=== PATIENT | female | born 1955 | race Caucasian/White ===

== ENCOUNTER 2019-12-03 15:21 | Emergency (ER) | payer OTHER, SELFPAY ==
[2019-12-03] VITALS (9 sets, daily range): BP systolic 154–194; BP diastolic 76–93; PULSE 61–71; RESP 14–20; TEMP 36.4; O2SAT 94–98; BMI 24.3
[2019-12-03 16:07] LABS: Add Manual Diff / Slide Review NO; Basophils Absolute Auto 100 /uL (0-100); Basophils Percent Auto 0.7 % (0-2); Eosinophils Absolute Auto 200 /uL (0-450); Eosinophils Percent Auto 2.4 % (2-4); Hematocrit 37.4 % (36-46); Hemoglobin 12.9 g/dL (12.0-16.0); Lymphocytes Absolute Auto 1700 /uL (1100-4500); Mean Corpuscular HGB Conc 34.5 % (30-36); Mean Corpuscular Hemoglobin 30.1 PG (26-34); Mean Corpuscular Volume 87.3 fL (80-100); Monocytes Absolute Auto 500 /uL (0-900); Monocytes Percent Auto 7.1 % (3-14); Neutrophils Absolute Auto 4300 /uL (1500-7000); Neutrophils Percent Auto 63.8 % (50-75); Platelet Count 233 X10^3/uL (150-400); Red Blood Cell Count 4.28 X10^6/uL (4.0-5.2); Red Cell Distribution Width 13.2 % (11.6-14.8); White Blood Cell Count 6.7 X10^3/uL (4.5-11.0)
--- NOTE | 2019-12-03 16:11 | ED_ITS ---
HPI - GI Bleed <ESCOBAR JinP - Last Filed: 12/03/19 23:46> General Chief complaint: GI Bleed Stated complaint: sent by MD for stomach issues Time Seen by Provider: 12/03/19 15:51 Source: patient Mode of arrival: Ambulatory Limitations: no limitations History of Present Illness HPI Narrative: This is a 64-year-old female, nonsmoker, who has history of cardiac stent and takes baby aspirin daily, hypertension, hiatal hernia presents to ED with family with chief complain of bright red rectal bleeding with diarrhea for last 4 days with epigastric discomfort. Patient denies chest pain, dyspnea, fever, chills, nausea or vomiting. Patient reports headache and irritability. Patient reports in the past she had GI bleed with bright red or dark stool occasionally when she eats acid ache food. Patient denies recent travel outside [place] camping, eating unusual food, working with farm animals, recent antibiotic medication use. Patient has been taking vegetable broth last 2 days without improvement in her symptoms. Patient denies other family member with similar symptoms. Patient's PCP is DR. Escobar and was recommended go to ED for evaluation and tests. Related Data Allergies Allergy/AdvReac Type Severity Reaction Status Date / Time No Known Drug Allergies Allergy Verified 12/03/19 15:36 Review of Systems <Preston RochaPalREYES Mcgill - Last Filed: 12/03/19 23:46> Review of Systems Narrative: General: Denies fever, chills, fatigue, malaise, sweats. HEENT: Denies sinus pain, ear pain, sore throat, difficulty swallowing, dizziness. Respiratory: Denies dyspnea, cough, wheezing, hemoptysis, sputum. Cardiovascular: Denies chest pain, palpitations, orthopnea, edema. Gastrointestinal: See HPI : Denies dysuria, frequency, incontinence, hematuria, urinary retention. Musculoskeletal: Denies weakness, joint pain or bony pain. Skin: Denies rash, skin lesions, or other. Neurologic: Denies weakness, (+) headache, numbness, change in speech, confusion, seizures, incoordination. Psychiatric: No concerning psychosocial issues. 12-point review of systems is negative except for those stated above. Patient History <REYES Jin Last Filed: 12/03/19 23:46> Medical History Hiatal hernia (Acute) Hyperlipidemia (Acute) Hypertension (Acute) Hypothyroidism (Acute) Surgical History H/O heart artery stent (Acute) Social History Smoking Status: Never smoker Smoking Status: Never smoker alcohol intake frequency: 0-2 drinks per day Substance Use Type: marijuana Exam <REYES Jin - Last Filed: 12/03/19 23:46> Narrative Exam Narrative: GEN: Alert, oriented x 3, well appearing and nourished, and in no acute distress. Head: Normal cephalic, atraumatic. No scalp or temporal tenderness, palpable mass or rash. EYES: Pupils are equal, round, and reactive to light and accommodation. Extraoc ular muscles are intact bilaterally. There is no subconjunctival hemorrhage, exudate and sclera non-icteric. ENT: Hearing grossly intact. Nose without bleeding, purulent discharge or deviation. Mucous membrane moist, no mucosal lesion. Throat without erythema, tonsillar hypertrophy or exudate. Uvula in midline, airway patent. Neck: Trachea in midline. No JVD, non-tender without lymphadenopathy. No masses or thyroid megaly. Supple, non-tender and no meningeal signs. CARDIAC: Normal regular rate and rhythm without murmurs, gallops, or rubs. No chest wall tenderness. No peripheral edema, cyanosis or pallor. Capillary refill is less than 2 seconds. RESPIRATORY: Lungs are clear to auscultate bilaterally. No cough, wheezes, rales, or rhonchi. No stridor, respiratory distress, increase work of breathing, or accessary muscle used. ABD: Abdomen soft, nontender and non-distended. No guarding or rebound tenderness to palpate. Bowel sounds are normal in all 4 quadrants. Small external hemorrhoids without bleeding. Rectal exam appreciated light pink mucous like stool. Hemoccult positive. There is no palpable masses or organomegaly. EXT: Full painless ROM of all extremities with no loss of sensation, strength, effusion or edema. SKIN: Warm, dry, normal color for patient. No erythema, lesions or rash over visible areas. BACK: Nontender without deformity or crepitance. No flank tenderness. NEUROLOGICAL: Alert and oriented to place, time and person. Sensation and motor function intact bilaterally. No facial droops, dysphasia. PSYCHIATRIC: Good judgement and reason, without hallucinations, abnormal affect or abnormal behaviors during the examination. Patient is not suicidal. Initial Vital Signs Initial Vital Signs: Vital Signs Temperature 97.6 F 12/03/19 15:33 Pulse Rate 63 12/03/19 15:33 Respiratory Rate 16 12/03/19 15:33 Blood Pressure 183/87 H 12/03/19 15:33 Pulse Oximetry 98 12/03/19 15:33 <Prudencio Freeman MD - Last Filed: 12/09/19 03:55> Initial Vital Signs Initial Vital Signs: Vital Signs Temperature 97.6 F 12/03/19 15:33 Pulse Rate 63 12/03/19 15:33 Respiratory Rate 16 12/03/19 15:33 Blood Pressure 183/87 H 12/03/19 15:33 Pulse Oximetry 98 12/03/19 15:33 Scores <REYES Jin - Last Filed: 12/03/19 23:46> GCS Araceli coma scale eye opening: Spontaneous Araceli coma scale verbal response: Orientated Araceli coma scale motor response: Obey commands [place] coma scale total score: 15 Course <REYES Jin - Last Filed: 12/03/19 23:46> Orders Ordered: Discontinued Medications Sodium Chloride (Normal Saline 0.9%) 1,000 mls @ 150 mls/hr IV CONT ANTONIA Last Admin: 12/03/19 18:12 Dose: Not Given Documented by: ANTON Pantoprazole Sodium (Protonix) 40 mg IV NOW ONE Stop: 12/03/19 16:11 Last Admin: 12/03/19 16:35 Dose: 40 mg Documented by: ANTON Vital Signs Vital signs: Vital Signs - 8 hr 12/03/19 15:33 12/03/19 15:46 12/03/19 15:48 Temperature 97.6 F Pulse Rate 63 71 64 Respiratory Rate 16 20 Blood Pressure 183/87 H 194/93 H Pulse Oximetry 98 97 12/03/19 16:00 12/03/19 16:01 12/03/19 17:17 Temperature Pulse Rate 61 62 64 Respiratory Rate 14 15 Blood Pressure 154/80 H Pulse Oximetry 96 97 94 12/03/19 17:30 12/03/19 17:48 12/03/19 18:00 Temperature Pulse Rate 61 61 63 Respiratory Rate 17 Blood Pressure 168/79 H 155/76 H Pulse Oximetry 95 98 95 <Prudencio Freeman MD - Last Filed: 12/09/19 03:55> Orders Ordered: Discontinued Medications Sodium Chloride (Normal Saline 0.9%) 1,000 mls @ 150 mls/hr IV CONT ANTONIA Last Admin: 12/03/19 18:12 Dose: Not Given Documented by: ANTON Pantoprazole Sodium (Protonix) 40 mg IV NOW ONE Stop: 12/03/19 16:11 Last Admin: 12/03/19 16:35 Dose: 40 mg Documented by: ANTON Vital Signs Vital signs: Vital Signs - 8 hr 12/03/19 15:33 12/03/19 15:46 12/03/19 15:48 Temperature 97.6 F Pulse Rate 63 71 64 Respiratory Rate 16 20 Blood Pressure 183/87 H 194/93 H Pulse Oximetry 98 97 12/03/19 16:00 12/03/19 16:01 12/03/19 17:17 Temperature Pulse Rate 61 62 64 Respiratory Rate 14 15 Blood Pressure 154/80 H Pulse Oximetry 96 97 94 12/03/19 17:30 12/03/19 17:48 12/03/19 18:00 Temperature Pulse Rate 61 61 63 Respiratory Rate 17 Blood Pressure 168/79 H 155/76 H Pulse Oximetry 95 98 95 MDM - GI Bleed <REYES Jin - Last Filed: 12/03/19 23:46> Differential Diagnosis Differential diagnosis: Likely hemorrhoids, infectious diarrhea, Upper gastrointestinal hemorrhage, Lower gastrointestinal hemorrhage, anal fissure and other (Colitis) Medical Records Attestation: I reviewed the patient's medical records. Lab Data Attestation: I reviewed the patient's lab results. Result diagrams: 12/03/19 15:50 12/03/19 15:50 Labs: Lab Results 12/03/19 12/03/19 12/03/19 Range/Units 15:50 15:50 15:50 WBC 6.7 (4.5-11.0) X10^3/uL RBC 4.28 (4.0-5.2) X10^6/uL Hgb 12.9 (12.0-16.0) g/dL Hct 37.4 (36-46) % MCV 87.3 (80-100) fL MCH 30.1 (26-34) PG MCHC 34.5 (30-36) % RDW 13.2 (11.6-14.8) % Plt Count 233 (150-400) X10^3/uL Neut % (Auto) 63.8 (50-75) % Lymph % (Auto) 26.0 (25-40) % [place] % (Auto) 7.1 (3-14) % Eos % (Auto) 2.4 (2-4) % Baso % (Auto) 0.7 (0-2) % Neut # (Auto) 4300 (9954-3890) /uL Lymph # (Auto) 1700 (9651-2776) /uL [place] # (Auto) 500 (0-900) /uL Eos # (Auto) 200 (0-450) /uL Baso # (Auto) 100 (0-100) /uL PT 11.7 (10.1-12.7) SECONDS INR 1.0 (0.9-1.3) APTT 30 (26.4-36.2) SECONDS Sodium 136 L (137-145) mmol/L Potassium 3.6 (3.4-5.1) mmol/L Chloride 101 (98-107) mmol/L Carbon Dioxide 28 (22-32) mmol/L BUN 12 (7-17) mg/dL Creatinine 0.68 (0.52-1.04) mg/dL Estimated GFR > 60.0 (>60) mL/min BUN/Creatinine Ratio 17.6 (6-22) Glucose 108 (80-110) mg/dL Calcium 9.5 (8.4-10.2) mg/dL Total Bilirubin 0.9 (0.2-1.3) mg/dL AST 47 H (14-36) IU/L ALT 43 H (<35) IU/L Alkaline Phosphatase 78 (38-126) U/L Total Protein 7.8 (6.3-8.2) g/dL Albumin 4.7 (3.5-5.0) g/dL Globulin 3.1 (1.7-4.1) g/dL Albumin/Globulin Ratio 1.5 (1.0-2.8) Lipase (23-300) U/L Urine RBC (0-5/HPF) Urine WBC (0-5/HPF) Urine Bacteria (None) Ur Culture Indicated? Micro UA Comment Blood Type Antibody Screen 12/03/19 12/03/19 12/03/19 Range/Units 15:50 15:50 16:38 WBC (4.5-11.0) X10^3/uL RBC (4.0-5.2) X10^6/uL Hgb (12.0-16.0) g/dL Hct (36-46) % MCV (80-100) fL MCH (26-34) PG MCHC (30-36) % RDW (11.6-14.8) % Plt Count (150-400) X10^3/uL Neut % (Auto) (50-75) % Lymph % (Auto) (25-40) % [place] % (Auto) (3-14) % Eos % (Auto) (2-4) % Baso % (Auto) (0-2) % Neut # (Auto) (7546-3879) /uL Lymph # (Auto) (1038-3883) /uL [place] # (Auto) (0-900) /uL Eos # (Auto) (0-450) /uL Baso # (Auto) (0-100) /uL PT (10.1-12.7) SECONDS INR (0.9-1.3) APTT (26.4-36.2) SECONDS Sodium (137-145) mmol/L Potassium (3.4-5.1) mmol/L Chloride (98-107) mmol/L Carbon Dioxide (22-32) mmol/L BUN (7-17) mg/dL Creatinine (0.52-1.04) mg/dL Estimated GFR (>60) mL/min BUN/Creatinine Ratio (6-22) Glucose (80-110) mg/dL Calcium (8.4-10.2) mg/dL Total Bilirubin (0.2-1.3) mg/dL AST (14-36) IU/L ALT (<35) IU/L Alkaline Phosphatase (38-126) U/L Total Protein (6.3-8.2) g/dL Albumin (3.5-5.0) g/dL Globulin (1.7-4.1) g/dL Albumin/Globulin Ratio (1.0-2.8) Lipase 160 (23-300) U/L Urine RBC None seen (0-5/HPF) Urine WBC None seen (0-5/HPF) Urine Bacteria None seen (None) Ur Culture Indicated? Cult not indicated Micro UA Comment Microscopic normal Blood Type A Positive Antibody Screen Negative Urine Dip Bedside Urine Glucose 100 mg/dl Bedside Urine Bilirubin - Negative Bedside Urine Ketone - Negative Urine Specific [place] 1.005 Bedside Urine Occult Blood - Negative Bedside Urine pH 6.5 Bedside Urine Protein - Negative Bedside Urine Urobilinogen - Negative Bedside Urine Nitrite - Negative Bedside Urine Leukocytes ++ [address] scan - abdomen/pelvis: Radiologist's Impression: [address] [address] [address] Scan Report Signed Patient: Kendra Keys RMR#: [id number] : [id number] Age/Sex: 64 / FDate of Service: 12/03/19 Loc: ED Accession Number: [id number] Procedure: CT abdomen pelvis w con Ordering Provider: Preston Sylvester PROCEDURE: CT ABDOMEN PELVIS W CON INDICATIONS: rectal bleed and diarrhea x 4days, mid abd pain TECHNIQUE: After the administration of intravenous contrast, 5 mm thick sections acquired from the diaphragm to the symphysis. 5 mm coronal and sagittal reformats were acquired. For radiation dose reduction, the following was used: automated exposure control, adjustment of mA and/or kV according to patient size. COMPARISON: None. FINDINGS: Image quality: Excellent. ABDOMEN: Lung bases: Lung bases are clear. Heart size is normal. Small pericardial e ffusion. Solid organs: Liver is normal in size and enhancement. Gallbladder is normal. Biliary system is non dilated. Pancreas enhances normally. Spleen is normal in size and enhancement. No adrenal nodules. Kidneys demonstrate normal size and enhancement. Trace renal pelviectasis. Peritoneum and bowel: The large amount of stool in proximal colon. There is mild thickening of hepatic flexure and proximal transverse colon. Bowel loops demonstrate normal wall thickness and caliber. No free fluid or air. Nodes and vessels: No retroperitoneal or mesenteric adenopathy by size cr iteria. Aorta and inferior vena cava are normal in size. [id number] atherosclerosis. Miscellaneous: No ventral hernias. PELVIS: Genitourinary: Bladder wall thickness is normal. There is a 3.1 x 4.9 cm cyst in the left adnexa, likely an ovarian cyst. Right ovary is not well seen. Uterus is small, consistent with age related change. Miscellaneous: No inguinal hernias or adenopathy. Bones: No suspicious bony lesions. No vertebral body compression fractures. Mild scoliosis and degenerative changes in lumbar spine. IMPRESSION: 1. Mild thickening of hepatic flexure and proximal transverse colon suggesting colitis. 2. Rectum may be thickened. In absence of oral contrast in the area, the finding could be caused by artifact. 3. There is a large amount of stool in proximal colon. 4. Small pericardial effusion. 5. Mild symmetrical renal pelviectasis bilaterally. 6. A 3.1 x 4.9 cm cyst in left adnexa. Recommend nonurgent pelvic ultrasound for follow-up evaluation. Dictated by: Kerry James M.D. on 12/03/2019 at 16:35 Approved by: Kerry James M.D. on 12/03/2019 at 16:44 ECG Data Attestation: I personally reviewed and interpreted this ECG as follows: Prior ECG tracings: not available for review Interpretation: Normal sinus rhythm rate at 66. Normal [place]. [place] interval 164, QRS duration 82, QT/QTC 436/457. No acute ST changes MDM Narrative Medical decision making narrative: This is a 64-year-old female who presents to ED with 4 day duration of diarrhea and bright red rectal bleeding. Patient reports she has history of hemorrhoids and associated symptoms as mid abdominal discomfort. She denies constitutional symptoms or recent antibiotic medication use, recent travel, working with farm animals. Last colonoscopy about 2 years ago due to history of hiatal hernia according to patient without acute findings. Physical exam is unremarkable. Abdomen was soft to palpate without rebound tenderness and intact bowel sounds in 4 quadrants. Rectal exam appreciated light pink mucous like stool appreciated with positive Hemoccult with non- bleeding hemorrhoids. Patient is afebrile with hypertensive upon arrival which improved to 155/76 the tachycardia or tachypnea. EKG was normal sinus rhythm without acute ST changes. No leukocytosis. Stable H&H of 12.9/37.4. Normal coag test. Unremarkable chemistry test except mildly elevated AST of 47 and ALT of 43. Normal lipase. POC UA test showed low urine leukoesterase without nitrite. Microscopic urine test shows no WBC or bacteria and not likely having an urinary infection. CT of abdomen/pelvis indicates with thickening of hepatic flexure and proximal transverse colon suggesting colitis. There is large amount of stool and proximal colon. No free fluid or air appreciated. Incidental findings of small pericardial effusion with mild symmetrical renal pelviectasis bilaterally and a left adnexa measuring in 3.1 x 4.9 cm and recommended non-urgent pelvic ultrasound for follow-up. 40 mg IV pantoprazole and gentle IV hydration. Given patient is afebrile without leukocytosis will hold antibiotic medication treatment for colitis. Patient advised to continue with clear liquid diet or bland diet for next couple of days. Advised to take [id number] Tylenol for discomfort. Advised to follow up with primary care physician for re- evaluation and consider for colonoscopy sooner than 5-10 years if patient's symptoms persist. Return precautions were discussed with patient and patient verbalized understanding and agreement with the treatment plan. Consulted Dr. Freeman for treatment plan with physical findings, labs and imaging test results. <Prudencio Freeman MD - Last Filed: 12/09/19 03:55> Lab Data Labs: Lab Results 12/03/19 12/03/19 12/03/19 Range/Units 15:50 15:50 15:50 WBC 6.7 (4.5-11.0) X10^3/uL RBC 4.28 (4.0-5.2) X10^6/uL Hgb 12.9 (12.0-16.0) g/dL Hct 37.4 (36-46) % MCV 87.3 (80-100) fL MCH 30.1 (26-34) PG MCHC 34.5 (30-36) % RDW 13.2 (11.6-14.8) % Plt Count 233 (150-400) X10^3/uL Neut % (Auto) 63.8 (50-75) % Lymph % (Auto) 26.0 (25-40) % [place] % (Auto) 7.1 (3-14) % Eos % (Auto) 2.4 (2-4) % Baso % (Auto) 0.7 (0-2) % Neut # (Auto) 4300 (5361-1346) /uL Lymph # (Auto) 1700 (5761-2010) /uL [place] # (Auto) 500 (0-900) /uL Eos # (Auto) 200 (0-450) /uL Baso # (Auto) 100 (0-100) /uL PT 11.7 (10.1-12.7) SECONDS INR 1.0 (0.9-1.3) APTT 30 (26.4-36.2) SECONDS Sodium 136 L (137-145) mmol/L Potassium 3.6 (3.4-5.1) mmol/L Chloride 101 (98-107) mmol/L Carbon Dioxide 28 (22-32) mmol/L BUN 12 (7-17) mg/dL Creatinine 0.68 (0.52-1.04) mg/dL Estimated GFR > 60.0 (>60) mL/min BUN/Creatinine Ratio 17.6 (6-22) Glucose 108 (80-110) mg/dL Calcium 9.5 (8.4-10.2) mg/dL Total Bilirubin 0.9 (0.2-1.3) mg/dL AST 47 H (14-36) IU/L ALT 43 H (<35) IU/L Alkaline Phosphatase 78 (38-126) U/L Total Protein 7.8 (6.3-8.2) g/dL Albumin 4.7 (3.5-5.0) g/dL Globulin 3.1 (1.7-4.1) g/dL Albumin/Globulin Ratio 1.5 (1.0-2.8) Lipase (23-300) U/L Urine RBC (0-5/HPF) Urine WBC (0-5/HPF) Urine Bacteria (None) Ur Culture Indicated? Micro UA Comment Blood Type Antibody Screen 12/03/19 12/03/19 12/03/19 Range/Units 15:50 15:50 16:38 WBC (4.5-11.0) X10^3/uL RBC (4.0-5.2) X10^6/uL Hgb (12.0-16.0) g/dL Hct (36-46) % MCV (80-100) fL MCH (26-34) PG MCHC (30-36) % RDW (11.6-14.8) % Plt Count (150-400) X10^3/uL Neut % (Auto) (50-75) % Lymph % (Auto) (25-40) % [place] % (Auto) (3-14) % Eos % (Auto) (2-4) % Baso % (Auto) (0-2) % Neut # (Auto) (6169-5114) /uL Lymph # (Auto) (4424-8993) /uL [place] # (Auto) (0-900) /uL Eos # (Auto) (0-450) /uL Baso # (Auto) (0-100) /uL PT (10.1-12.7) SECONDS INR (0.9-1.3) APTT (26.4-36.2) SECONDS Sodium (137-145) mmol/L Potassium (3.4-5.1) mmol/L Chloride (98-107) mmol/L Carbon Dioxide (22-32) mmol/L BUN (7-17) mg/dL Creatinine (0.52-1.04) mg/dL Estimated GFR (>60) mL/min BUN/Creatinine Ratio (6-22) Glucose (80-110) mg/dL Calcium (8.4-10.2) mg/dL Total Bilirubin (0.2-1.3) mg/dL AST (14-36) IU/L ALT (<35) IU/L Alkaline Phosphatase (38-126) U/L Total Protein (6.3-8.2) g/dL Albumin (3.5-5.0) g/dL Globulin (1.7-4.1) g/dL Albumin/Globulin Ratio (1.0-2.8) Lipase 160 (23-300) U/L Urine RBC None seen (0-5/HPF) Urine WBC None seen (0-5/HPF) Urine Bacteria None seen (None) Ur Culture Indicated? Cult not indicated Micro UA Comment Microscopic normal Blood Type A Positive Antibody Screen Negative Urine Dip Bedside Urine Glucose 100 mg/dl Bedside Urine Bilirubin - Negative Bedside Urine Ketone - Negative Urine Specific [place] 1.005 Bedside Urine Occult Blood - Negative Bedside Urine pH 6.5 Bedside Urine Protein - Negative Bedside Urine Urobilinogen - Negative Bedside Urine Nitrite - Negative Bedside Urine Leukocytes ++ 125 Esterase Discharge Plan Departure Patient Disposition: Home Clinical Impression: Colitis, Rectal bleed Discharge Date/Time: 12/03/19 18:20 Instructions: DI for Rectal Bleeding, DI for Colitis Activity Restrictions/Additional Instructions: You have been diagnosed with [colitis and rectal bleed. CBC count is stable for H/ H and no elevation in WBC/neutrophils. Very mildly elevated in AST and ALT (liver function test). Urine test does not indicate infection. Abd/Pelvis CT test suggesting colitis and large amount of stool in proximal colon. There is a cyst appreciated in left ovary which should be followed up by ultrasound in the near future. Incidental finding of small pericardial effusion.]. What to do: *Take your medications as directed. Please continue with clear liquid diet or bland diet next couple of days. *Follow up with your primary care provider in 2-3 days, call for an appointment. Let them know you were seen in the ED and that we asked you to be seen in follow up. You may repeat colonoscopy sooner than 5-10 years. *Return to ED if you have any new, worsening, or concerning symptoms, such as [fever, worsening pain, increasing rectal bleeding, chest pain, breathing difficulty, unable to tolerate fluids or any acute concerns]. Referrals: Anna Kim DO [Primary Care Provider] - <Prudencio Freeman MD - Last Filed: 12/09/19 03:55> Cosign ED Attending Cosrobertature Attestation: I was immediately available in the department for consultation. This documentation has been reviewed and I agree with assessment and plan. Supervised by Prudencio Freeman MD
[2019-12-03 16:13] LABS: Prothrombin Time 11.7 SECONDS (10.1-12.7)
[2019-12-03 16:16] LABS: PTT Partial Thromboplastin Tim 30 SECONDS (26.4-36.2)
[2019-12-03 16:17] LABS: Alanine Aminotransferase 43 IU/L (<35); Albumin 4.7 g/dL (3.5-5.0); Albumin Globulin Ratio 1.5 (1.0-2.8); Alkaline Phosphatase 78 U/L (38-126); Aspartate Aminotransferase 47 IU/L (14-36); BUN Creatinine Ratio 17.6 (6-22); Bilirubin Total 0.9 mg/dL (0.2-1.3); Blood Urea Nitrogen 12 mg/dL (7-17); Calcium 9.5 mg/dL (8.4-10.2); Carbon Dioxide 28 mmol/L (22-32); Chloride 101 mmol/L (98-107); Estimated Glomerular Filt Rate > 60.0 mL/min (>60); Globulin 3.1 g/dL (1.7-4.1); Glucose 108 mg/dL (80-110); HEMOLYSIS < 15 (0-50); Potassium 3.6 mmol/L (3.4-5.1); Sodium 136 mmol/L (137-145); Total Protein 7.8 g/dL (6.3-8.2)
[2019-12-03 16:19] LABS: Lipase 160 U/L (23-300)
[2019-12-03] MEDS: PANTOPRAZOLE 40 MG VIAL IV (16:35)
--- NOTE | 2019-12-03 16:52 | DI.CT.S_ITS ---
PROCEDURE: CT ABDOMEN PELVIS W CON INDICATIONS: rectal bleed and diarrhea x 4days, mid abd pain TECHNIQUE: After the administration of intravenous contrast, 5 mm thick sections acquired from the diaphragm to the symphysis. 5 mm coronal and sagittal reformats were acquired. For radiation dose reduction, the following was used: automated exposure control, adjustment of mA and/or kV according to patient size. COMPARISON: None. FINDINGS: Image quality: Excellent. ABDOMEN: Lung bases: Lung bases are clear. Heart size is normal. Small pericardial effusion. Solid organs: Liver is normal in size and enhancement. Gallbladder is normal. Biliary system is non dilated. Pancreas enhances normally. Spleen is normal in size and enhancement. No adrenal nodules. Kidneys demonstrate normal size and enhancement. Trace renal pelviectasis. Peritoneum and bowel: The large amount of stool in proximal colon. There is mild thickening of hepatic flexure and proximal transverse colon. Bowel loops demonstrate normal wall thickness and caliber. No free fluid or air. Nodes and vessels: No retroperitoneal or mesenteric adenopathy by size criteria. Aorta and inferior vena cava are normal in size. Tscbocsu-di-adjuee atherosclerosis. Miscellaneous: No ventral hernias. PELVIS: Genitourinary: Bladder wall thickness is normal. There is a 3.1 x 4.9 cm cyst in the left adnexa, likely an ovarian cyst. Right ovary is not well seen. Uterus is small, consistent with age related change. Miscellaneous: No inguinal hernias or adenopathy. Bones: No suspicious bony lesions. No vertebral body compression fractures. Mild scoliosis and degenerative changes in lumbar spine. IMPRESSION: 1. Mild thickening of hepatic flexure and proximal transverse colon suggesting colitis. 2. Rectum may be thickened. In absence of oral contrast in the area, the finding could be caused by artifact. 3. There is a large amount of stool in proximal colon. 4. Small pericardial effusion. 5. Mild symmetrical renal pelviectasis bilaterally. 6. A 3.1 x 4.9 cm cyst in left adnexa. Recommend nonurgent pelvic ultrasound for follow-up evaluation. Dictated by: Kerry James M.D. on 12/03/2019 at 16:35 Approved by: Kerry James M.D. on 12/03/2019 at 16:44
[2019-12-03 17:00] LABS: Bacteria Urine None Seen; RBC Urine None Seen (0-5/HPF); WBC Urine None Seen (0-5/HPF)
[2019-12-03 17:07] LABS: Culture Indicated Urine Cult Not Indicated; Urine Comments Microscopic Normal
== END 2019-12-03 18:20 | disposition home or self-care (01) ==
PROVIDERS: Emergency Provider Nurse Practitioner Family; PCP Family Medicine; Referring Provider Family Medicine
DX: K52.9 Noninfective gastroenteritis and colitis, unspecified (principal); K62.5 Hemorrhage of anus and rectum; R10.13 Epigastric pain
CPT/HCPCS: 36415; 74177; 80053; 81003; 81015; 83690; 85025; 85610; 85730; 86850; 86900; 86901; 93005; 93010; 96374; 99284; C9113; Q9967